=== PATIENT | female | born 1950 | race Caucasian/White ===

== ENCOUNTER → 2025-08-19 | Outpatient (CLI) | payer MEDICARE, SELFPAY ==
--- NOTE | 2025-08-19 12:00 | XR_ITS ---
Examination: Bone densitometry Date and time of exam: August 19, 2025, 1223 hours INDICATIONS: Menopause age 44, postmenopausal cervical and thoracic spine fractures Technique: Lumbar spine and hip total bone mineralization values of an calculated. Peak reference and age match control results have been displayed. Findings: Lumbar spine total bone mineralization is 0.642 gm/cm2. This is 3.7 standard deviations below peak reference. This is 1.1 standard deviations below age-matched controls. Hip total bone mineralization is 0.465 gm/cm2 This is 3.9 standard deviations below peak reference. This is 2.0 standard deviations below age-matched controls Impression: There is osteoporosis based on lumbar spine measurements. There is osteoporosis based on hip measurements Lumbar mineralization is increased 6.3% compared with August 15, 2023 Hip mineralization is decreased 2.7% compared with August 15, 2023
== END | disposition home or self-care (01) ==
LOC: CDIM 11:24
PROVIDERS: Referring Provider Physician Assistant Medical; Visit Provider Physician Assistant Medical
DX: M81.0 Age-related osteoporosis without current pathological fracture (principal)
CPT/HCPCS: 77080